=== PATIENT | female | born 1990 | race Caucasian/White ===

== ENCOUNTER 2017-03-21 08:48 | Emergency (ER) | payer SELFPAY ==
[2017-03-21] MEDS ORDERED: Ibuprofen 800 MG Tab PO ONE (08:55)
--- NOTE | 2017-03-21 08:55 | EDM.PDOC ---
ED HPI GENERAL MEDICAL PROBLEM - General Chief Complaint: Neck Problem Stated Complaint: AMBULANCE Time Seen by Provider: 03/21/17 08:51 Source of Information: Reports: Patient History Limitations: Reports: No Limitations - History of Present Illness INITIAL COMMENTS - FREE TEXT/NARRATIVE: History of present illness: []Patient awoke with severe left-sided neck spasm. Patient states she's had this before but never this bad. Earlier she had pain radiating down her left arm with numbness but that has since resolved. Patient has not taken any meds since this occurred she came in by ambulance. Review of systems: As per history of present illness and below otherwise all systems reviewed and negative. Past medical history: As per history of present illness and as reviewed below otherwise noncontributory. Surgical history: As per history of present illness and as reviewed below otherwise noncontributory. Social history: No reported history of drug or alcohol abuse. Family history: As per history of present illness and as reviewed below otherwise noncontributory. Physical exam: General: Well developed, well nourished in NAD HEENT: Atraumatic, normocephalic, pupils reactive, negative for conjunctival pallor or scleral icterus, mucous membranes moist, throat clear, neck supple, tender over the left posterior neck with palpable muscle spasm, trachea midline. Lungs: Clear to auscultation, breath sounds equal bilaterally, chest nontender. Heart: S1S2, regular, negative for clicks, rubs, or JVD. Abdomen: Soft, nondistended, nontender. Negative for masses or hepatosplenomegaly. Negative for costovertebral tenderness. Pelvis: Stable nontender. Genitourinary: Deferred. Rectal: Deferred. Extremities: Atraumatic, negative for cords or calf pain. Neurovascular unremarkable. Neuro: Awake, alert, oriented. Cranial nerves II through XII unremarkable. Cerebellum unremarkable. Motor and sensory unremarkable throughout with equal aerospace engineer officer armament. Exam nonfocal. Diagnostics: [] Therapeutics: []Ibuprofen Impression: []Cervical sprain Plan: []Ibuprofen, Flexeril, ice and heat Definitive disposition and diagnosis as appropriate pending reevaluation and review of above. - Related Data Allergies Allergy/AdvReac Type Severity Reaction Status Date / Time codeine Allergy Hives Verified 03/21/17 08:49 Home Meds: Home Meds Cyclobenzaprine [Flexeril] 10 mg PO BID PRN #6 tablet 03/21/17 [Rx] ED ROS GENERAL - Review of Systems Review Of Systems: See Below (See history of present illness) ED EXAM, UPPER BACK/NECK PAIN - Physical Exam Exam: See Below (See history of present illness) Course - Vital Signs Last Recorded V/S: Last Vital Signs Temp 98.7 F 03/21/17 08:49 Pulse 81 03/21/17 08:49 Resp 16 03/21/17 08:49 BP 136/63 03/21/17 08:49 Pulse Ox 93 L 03/21/17 08:49 - Orders/Labs/Meds Meds: Medications Discontinued Medications Generic Name Dose Route Start Last Admin Trade Name Freq PRN Reason Stop Dose Admin Ibuprofen 800 mg 03/21/17 08:55 Motrin PO 03/21/17 08:56 ONETIME ONE Departure - Departure Time of Disposition: 09:04 Disposition: Home, Self-Care 01 Condition: Good Clinical Impression: Cervical paraspinal muscle spasm - Discharge Information Prescriptions: Cyclobenzaprine [Flexeril] 10 mg PO BID PRN #6 tablet PRN Reason: Spasms Forms: ED Department Discharge Additional Instructions: The following information is given to patients seen in the emergency department who are being discharged to home. This information is to outline your options for follow-up care. We provide all patients seen in our emergency department with a follow-up referral. The need for follow-up, as well as the timing and circumstances, are variable depending upon the specifics of your emergency department visit. If you don't have a primary care physician on staff, we will provide you with a referral. We always advise you to contact your personal physician following an emergency department visit to inform them of the circumstance of the visit and for follow-up with them and/or the need for any referrals to a consulting specialist. The emergency department will also refer you to a specialist when appropriate. This referral assures that you have the opportunity for follow-up care with a specialist. All of these measure are taken in an effort to provide you with optimal care, which includes your follow-up. Under all circumstances we always encourage you to contact your private physician who remains a resource for coordinating your care. When calling for follow-up care, please make the office aware that this follow-up is from your recent emergency room visit. If for any reason you are refused follow-up, please contact the [facility] at and asked to speak to the emergency department charge nurse. Take ibuprofen for pain, use Flexeril at night to relieve spasm use ice and/or heat for comfort follow-up with the primary care as needed [facility] [address] [place] [id number]
== END 2017-03-21 09:30 | disposition home or self-care (01) ==
LOC: MW.ED 08:48
DX: S13.4XXA Sprain of ligaments of cervical spine, initial encounter (principal); Z88.5 Allergy status to narcotic agent; X58.XXXA Exposure to other specified factors, initial encounter
CPT/HCPCS: 99283; A9270

== ENCOUNTER 2017-07-26 05:18 | Emergency (ER) | payer BC ==
[2017-07-26 06:59] LABS: CHLORIDE,CL 104 mmol/L (98-107); SODIUM,NA 140 mmol/L (136-145)
--- NOTE | 2017-07-26 07:07 | EDM.PDOC ---
ED HPI GENERAL MEDICAL PROBLEM - General Chief Complaint: Behavioral/Psych Stated Complaint: TOOK TO MANY PILLS Time Seen by Provider: 07/26/17 06:57 - History of Present Illness INITIAL COMMENTS - FREE TEXT/NARRATIVE: HISTORY AND PHYSICAL: History of present illness: Patient is a 26-year-old white female presents with a concern of depressive episode and polysubstance abuse patient states she took a unknown number of Adderall states she also used mushrooms and marijuana. She has had prior episodes of self mutilating behavior and psychiatric involvement she initially denied prior psychiatric admission upon discussion with her she states she has been admitted in the past. Review of systems: As per history of present illness and below otherwise all systems reviewed and negative. Past medical history: As per history of present illness and as reviewed below otherwise noncontributory. Surgical history: As per history of present illness and as reviewed below otherwise noncontributory. Social history: No reported history of drug or alcohol abuse. Family history: As per history of present illness and as reviewed below otherwise noncontributory. Physical exam: HEENT: Atraumatic, normocephalic, pupils reactive, negative for conjunctival pallor or scleral icterus, mucous membranes moist, throat clear, neck supple, nontender, trachea midline. Lungs: Clear to auscultation, breath sounds equal bilaterally, chest nontender. Heart: S1S2, regular, negative for clicks, rubs, or JVD. Abdomen: Soft, nondistended, nontender. Negative for masses or hepatosplenomegaly. Negative for costovertebral tenderness. Pelvis: Stable nontender. Genitourinary: Deferred. Rectal: Deferred. Extremities: Atraumatic, negative for cords or calf pain. Neurovascular unremarkable. Neuro: Awake, alert, oriented. Cranial nerves II through XII unremarkable. Cerebellum unremarkable. Motor and sensory unremarkable throughout. Exam nonfocal. Diagnostics: Psychiatric panel Therapeutics: IV O2 monitor Impression: #1 depressive episode with nonlethal overdose #2 polysubstance abuse Definitive disposition and diagnosis as appropriate pending reevaluation and review of above. 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: Reports: None Musculoskeletal History: Reports: None Neurological History: Reports: None Psychiatric History: Reports: Anxiety, Depression, Psych Hospitalization(s) Endocrine/Metabolic History: Reports: None Hematologic History: Reports: None Oncologic (Cancer) History: Reports: None Dermatologic History: Reports: None - Infectious Disease History Infectious Disease History: Reports: None - Past Surgical History Female Surgical History: Reports: None Social & Family History - Family History Family Medical History: Noncontributory - Tobacco Use Smoking Status *Q: Current Every Day Smoker Years of Tobacco use: 11 Packs/Tins Daily: 1 - Recreational Drug Use Recreational Drug Use: Yes Drug Use in Last 12 Months: Yes Recreational Drug Type: Reports: Marijuana/Hashish, Psilocybin (Mushrooms) ED ROS GENERAL - Review of Systems Review Of Systems: ROS reveals no pertinent complaints other than HPI. ED EXAM, GENERAL - Physical Exam Exam: See Below (dictation) Course - Vital Signs Text/Narrative:: Patient has had an unremarkable emergency department course poison control was consult patient remains hemodynamically stable I discussed case with psychiatry at [facility] graciously accepted the patient to retransferred to the emergency department for psychiatric admission by ground patient remains cooperative and agreeable to psychiatric admission Last Recorded V/S: Last Vital Signs Temp 37.1 C 07/26/17 05:24 Pulse 78 07/26/17 06:29 Resp 19 07/26/17 06:29 BP 118/73 07/26/17 06:29 Pulse Ox 99 07/26/17 06:29 - Orders/Labs/Meds Orders: Active Orders 24 hr Category Date Time Status EKG Documentation Completion [RC] STAT Care 07/26/17 05:33 Active Labs: Laboratory Tests 07/26/17 07/26/17 07/26/17 Range/Units 05:40 05:40 05:42 WBC 16.27 H (4.0-11.0) K/uL RBC 5.08 (4.30-5.90) M/uL Hgb 15.6 (12.0-16.0) g/dL Hct 44.1 (36.0-46.0) % MCV 86.8 (80.0-98.0) fL MCH 30.7 (27.0-32.0) pg MCHC 35.4 (31.0-37.0) g/dL RDW Std Deviation 40.9 (28.0-62.0) fl RDW Coeff of Nancy 13 (11.0-15.0) % Plt Count 370 (150-400) K/uL MPV 10.80 (7.40-12.00) fL Neut % (Auto) 72.8 (48.0-80.0) % Lymph % (Auto) 19.7 (16.0-40.0) % Iron % (Auto) 6.1 (0.0-15.0) % Eos % (Auto) 1.0 (0.0-7.0) % Baso % (Auto) 0.4 (0.0-1.5) % Neut # (Auto) 11.8 H (1.4-5.7) K/uL Lymph # (Auto) 3.2 H (0.6-2.4) K/uL Iron # (Auto) 1.0 H (0.0-0.8) K/uL Eos # (Auto) 0.2 (0.0-0.7) K/uL Baso # (Auto) 0.1 (0.0-0.1) K/uL Nucleated RBC % 0.0 /100WBC Nucleated RBCs # 0 K/uL Sodium 140 (136-145) mmol/L Potassium 3.8 (3.5-5.1) mmol/L Chloride 104 (98-107) mmol/L Carbon Dioxide 22.7 (21.0-32.0) mmol/L BUN 6 L (7.0-18.0) mg/dL Creatinine 0.7 (0.6-1.0) mg/dL Est Cr Clr Drug Dosing 95.48 mL/min Estimated GFR (MDRD) > 60.0 ml/min Glucose 98 (74-106) mg/dL Calcium 9.5 (8.5-10.1) mg/dL Magnesium 1.6 (1.5-2.0) mg/dL Total Bilirubin 0.3 (0.2-1.0) mg/dL AST 19 (15-37) IU/L ALT 24 (14-63) IU/L Alkaline Phosphatase 96 (46-116) U/L Total Protein 7.9 (6.4-8.2) g/dL Albumin 4.2 (3.4-5.0) g/dL Globulin 3.7 H (2.0-3.5) g/dL Albumin/Globulin Ratio 1.1 L (1.3-2.8) TSH 3rd Generation 2.45 (0.36-3.74) uIU/mL Urine Color YELLOW Urine Appearance CLEAR Urine pH 6.0 (5.0-8.0) Ur Specific [place] 1.025 (1.001-1.035) Urine Protein NEGATIVE (NEGATIVE) mg/dL Urine Glucose (UA) NEGATIVE (NEGATIVE) mg/dL Urine Ketones 40 H (NEGATIVE) mg/dL Urine Occult Blood TRACE-LYSED (NEGATIVE) Urine Nitrite NEGATIVE (NEGATIVE) Urine Bilirubin SMALL H (NEGATIVE) Urine Ictotest NEGATIVE Urine Urobilinogen 0.2 (<2.0) EU/dL Ur Leukocyte Esterase NEGATIVE (NEGATIVE) Urine RBC 0-2 (0-2/HPF) Urine WBC 2-4 (0-5/HPF) Ur Epithelial Cells MODERATE (NONE-FEW) Urine Bacteria FEW (NEGATIVE) Urine Mucus LIGHT (NONE-MOD) Salicylates 5.6 (0-20) mg/dL Urine Opiates Screen (NEGATIVE) Ur Oxycodone Screen (NEGATIVE) Urine Methadone Screen (NEGATIVE) Acetaminophen 0.0 ug/mL Ur Barbiturates Screen (NEGATIVE) Ur Phencyclidine Scrn (NEGATIVE) Ur Amphetamine Screen (NEGATIVE) U Methamphetamines Scrn (NEGATIVE) U Benzodiazepines Scrn (NEGATIVE) U Cocaine Metab Screen (NEGATIVE) U Marijuana (THC) Screen (NEGATIVE) Ethyl Alcohol 47 mg/dL 07/26/17 Range/Units 05:42 WBC (4.0-11.0) K/uL RBC (4.30-5.90) M/uL Hgb (12.0-16.0) g/dL Hct (36.0-46.0) % MCV (80.0-98.0) fL MCH (27.0-32.0) pg MCHC (31.0-37.0) g/dL RDW Std Deviation (28.0-62.0) fl RDW Coeff of Nancy (11.0-15.0) % Plt Count (150-400) K/uL MPV (7.40-12.00) fL Neut % (Auto) (48.0-80.0) % Lymph % (Auto) (16.0-40.0) % Iron % (Auto) (0.0-15.0) % Eos % (Auto) (0.0-7.0) % Baso % (Auto) (0.0-1.5) % Neut # (Auto) (1.4-5.7) K/uL Lymph # (Auto) (0.6-2.4) K/uL Iron # (Auto) (0.0-0.8) K/uL Eos # (Auto) (0.0-0.7) K/uL Baso # (Auto) (0.0-0.1) K/uL Nucleated RBC % /100WBC Nucleated RBCs # K/uL Sodium (136-145) mmol/L Potassium (3.5-5.1) mmol/L Chloride (98-107) mmol/L Carbon Dioxide (21.0-32.0) mmol/L BUN (7.0-18.0) mg/dL Creatinine (0.6-1.0) mg/dL Est Cr Clr Drug Dosing mL/min Estimated GFR (MDRD) ml/min Glucose (74-106) mg/dL Calcium (8.5-10.1) mg/dL Magnesium (1.5-2.0) mg/dL Total Bilirubin (0.2-1.0) mg/dL AST (15-37) IU/L ALT (14-63) IU/L Alkaline Phosphatase (46-116) U/L Total Protein (6.4-8.2) g/dL Albumin (3.4-5.0) g/dL Globulin (2.0-3.5) g/dL Albumin/Globulin Ratio (1.3-2.8) TSH 3rd Generation (0.36-3.74) uIU/mL Urine Color Urine Appearance Urine pH (5.0-8.0) Ur Specific [place] (1.001-1.035) Urine Protein (NEGATIVE) mg/dL Urine Glucose (UA) (NEGATIVE) mg/dL Urine Ketones (NEGATIVE) mg/dL Urine Occult Blood (NEGATIVE) Urine Nitrite (NEGATIVE) Urine Bilirubin (NEGATIVE) Urine Ictotest Urine Urobilinogen (<2.0) EU/dL Ur Leukocyte Esterase (NEGATIVE) Urine RBC (0-2/HPF) Urine WBC (0-5/HPF) Ur Epithelial Cells (NONE-FEW) Urine Bacteria (NEGATIVE) Urine Mucus (NONE-MOD) Salicylates (0-20) mg/dL Urine Opiates Screen NEGATIVE (NEGATIVE) Ur Oxycodone Screen NEGATIVE (NEGATIVE) Urine Methadone Screen NEGATIVE (NEGATIVE) Acetaminophen ug/mL Ur Barbiturates Screen NEGATIVE (NEGATIVE) Ur Phencyclidine Scrn NEGATIVE (NEGATIVE) Ur Amphetamine Screen POSITIVE (NEGATIVE) U Methamphetamines Scrn NEGATIVE (NEGATIVE) U Benzodiazepines Scrn NEGATIVE (NEGATIVE) U Cocaine Metab Screen POSITIVE (NEGATIVE) U Marijuana (THC) Screen POSITIVE (NEGATIVE) Ethyl Alcohol mg/dL Departure - Departure Time of Disposition: 07:06 Disposition: DC/Tfer to Psych Hosp/Unit 65 Condition: Good Clinical Impression: Depressive disorder, Polysubstance abuse - Discharge Information - My Orders Last 24 Hours: My Active Orders 07/26/17 05:33 EKG Documentation Completion [RC] STAT - Assessment/Plan Last 24 Hours: My Active Orders 07/26/17 05:33 EKG Documentation Completion [RC] STAT
== END 2017-07-26 08:11 ==
LOC: MW.ED 05:18
DX: T43.621A Poisoning by amphetamines, accidental (unintentional), initial encounter (principal); F32.9 Major depressive disorder, single episode, unspecified; F19.10 Other psychoactive substance abuse, uncomplicated; F17.210 Nicotine dependence, cigarettes, uncomplicated; Z88.5 Allergy status to narcotic agent; Z79.899 Other long term (current) drug therapy
CPT/HCPCS: 36415; 80053; 80305; 81001; 83735; 84443; 85025; 93005; 99285; G0480; 99284

== ENCOUNTER 2018-05-13 01:32 | Emergency (ER) | payer SELFPAY ==
--- NOTE | 2018-05-13 01:52 | EDM.PDOC ---
ED HPI GENERAL MEDICAL PROBLEM - General Chief Complaint: General Stated Complaint: MEDICAL CLEARANCE Time Seen by Provider: 05/13/18 01:50 - History of Present Illness INITIAL COMMENTS - FREE TEXT/NARRATIVE: HISTORY AND PHYSICAL: History of present illness: Patient's 27-year-old white female presents in custody of law enforcement for medical clearance she has no complaints Review of systems: As per history of present illness and below otherwise all systems reviewed and negative. Past medical history: As per history of present illness and as reviewed below otherwise noncontributory. Surgical history: As per history of present illness and as reviewed below otherwise noncontributory. Social history: No reported history of drug or alcohol abuse. Family history: As per history of present illness and as reviewed below otherwise noncontributory. Physical exam: HEENT: Atraumatic, normocephalic, pupils reactive, negative for conjunctival pallor or scleral icterus, mucous membranes moist, throat clear, neck supple, nontender, trachea midline. Lungs: Clear to auscultation, breath sounds equal bilaterally, chest nontender. Heart: S1S2, regular, negative for clicks, rubs, or JVD. Abdomen: Soft, nondistended, nontender. Negative for masses or hepatosplenomegaly. Negative for costovertebral tenderness. Pelvis: Stable nontender. Genitourinary: Deferred. Rectal: Deferred. Extremities: Atraumatic, negative for cords or calf pain. Neurovascular unremarkable. Neuro: Awake, alert, oriented. Cranial nerves II through XII unremarkable. Cerebellum unremarkable. Motor and sensory unremarkable throughout. Exam nonfocal. Diagnostics: None Therapeutics: None Impression: #1 medical clearance for incarceration Definitive disposition and diagnosis as appropriate pending reevaluation and review of above. 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 Musculoskeletal History: Reports: None Neurological History: Reports: None Psychiatric History: Reports: Anxiety, Depression, Psych Hospitalization(s) Endocrine/Metabolic History: Reports: None Hematologic History: Reports: None Immunologic History: Reports: None Oncologic (Cancer) History: Reports: None Dermatologic History: Reports: None - Infectious Disease History Infectious Disease History: Reports: None - Past Surgical History Head Surgeries/Procedures: Reports: None Female Surgical History: Reports: None Social & Family History - Family History Family Medical History: Noncontributory - Tobacco Use Smoking Status *Q: Current Every Day Smoker Years of Tobacco use: 10 Packs/Tins Daily: 2 - Caffeine Use Caffeine Use: Reports: Soda - Recreational Drug Use Recreational Drug Use: No ED ROS GENERAL - Review of Systems Review Of Systems: ROS reveals no pertinent complaints other than HPI. ED EXAM, GENERAL - Physical Exam Exam: See Below (See dictation) Course - Vital Signs Last Recorded V/S: Last Vital Signs Temp 36.4 C 05/13/18 01:35 Pulse 126 H 05/13/18 01:35 Resp 16 05/13/18 01:35 BP 129/75 05/13/18 01:35 Pulse Ox 97 05/13/18 01:35 - Orders/Labs/Meds Orders: Active Orders 24 hr Category Date Time Status Blood Glucose Check, Bedside [RC] ONETIME Care 05/13/18 01:44 Active Labs: Laboratory Tests 05/13/18 Range/Units 01:43 POC Glucose 96 (60-110) mg/dL Departure - Departure Time of Disposition: 01:51 Disposition: Home, Self-Care 01 Condition: Good Clinical Impression: Medical clearance for incarceration - Discharge Information Referrals: PCP,None [Primary Care Provider] - Additional Instructions: The following information is given to patients seen in the emergency department who are being discharged to home. This information is to outline your options for follow-up care. We provide all patients seen in our emergency department with a follow-up referral. The need for follow-up, as well as the timing and circumstances, are variable depending upon the specifics of your emergency department visit. If you don't have a primary care physician on staff, we will provide you with a referral. We always advise you to contact your personal physician following an emergency department visit to inform them of the circumstance of the visit and for follow-up with them and/or the need for any referrals to a consulting specialist. The emergency department will also refer you to a specialist when appropriate. This referral assures that you have the opportunity for followup care with a specialist. All of these measure are taken in an effort to provide you with optimal care, which includes your followup. Under all circumstances we always encourage you to contact your private physician who remains a resource for coordinating your care. When calling for followup care, please make the office aware that this follow-up is from your recent emergency room visit. If for any reason you are refused follow-up, please contact the [facility] emergency department at and asked to speak to the emergency department charge nurse. Follow-up primary medical doctor as needed as discussed return as needed as discussed - My Orders Last 24 Hours: My Active Orders 05/13/18 01:44 Blood Glucose Check, Bedside [RC] ONETIME - Assessment/Plan Last 24 Hours: My Active Orders 05/13/18 01:44 Blood Glucose Check, Bedside [RC] ONETIME
== END 2018-05-13 02:00 | disposition home or self-care (01) ==
LOC: MW.ED 01:32
DX: Z02.89 Encounter for other administrative examinations (principal); F41.9 Anxiety disorder, unspecified; F32.9 Major depressive disorder, single episode, unspecified; F17.210 Nicotine dependence, cigarettes, uncomplicated; Z79.899 Other long term (current) drug therapy
CPT/HCPCS: 82962; 99282; 99283

== ENCOUNTER 2018-06-18 15:59 | Emergency (ER) | payer SELFPAY ==
[2018-06-18] MEDS ORDERED: Diphtheria,Pertussis(Acell),Tetanus Vaccine 0.5 ML Syringe IM ONE (16:15)
--- NOTE | 2018-06-18 16:20 | EDM.PDOC ---
ED HPI GENERAL MEDICAL PROBLEM - General Chief Complaint: General Stated Complaint: MEDICAL CLEARANCE Time Seen by Provider: 06/18/18 16:03 Source of Information: Reports: Patient History Limitations: Reports: No Limitations - History of Present Illness INITIAL COMMENTS - FREE TEXT/NARRATIVE: HISTORY AND PHYSICAL: History of present illness: Patient is a 27-year-old female who is brought to the emergency room via enforcement for medical screening. Patient reportedly is brought here for removal of marijuana from the vaginal vault. Patient states that she is agreeable to removal of the marijuana from her vagina. Patient denies any other health concerns or issues to address today. Patient does have a history of anxiety, depression, and borderline personality disorder. Patient denies any other health issues or concerns. Review of systems: As per history of present illness and below otherwise all systems reviewed and negative. Past medical history: As per history of present illness and as reviewed below otherwise noncontributory. Surgical history: As per history of present illness and as reviewed below otherwise noncontributory. Social history: See social history for further information Family history: As per history of present illness and as reviewed below otherwise noncontributory. Physical exam: General: Patient is alert, oriented, and in no acute distress. She is sitting comfortably on exam table. HEENT: Atraumatic, normocephalic, pupils equal and reactive bilaterally, negative for conjunctival pallor or scleral icterus, mucous membranes moist, TMs normal bilaterally, throat clear, neck supple, nontender, trachea midline. No drooling or trismus noted. No meningeal signs. No hot potato voice noted. Lungs: Clear to auscultation, breath sounds equal bilaterally, chest nontender. Heart: S1S2, regular rate and rhythm without overt murmur Abdomen: Soft, nondistended, nontender. Negative for masses or hepatosplenomegaly. Negative for costovertebral tenderness. Pelvis: Stable nontender. Genitourinary: This was done with consent and a sanitation director at the bedside. Law enforcement is also at the bedside to take custody of the drug paraphernalia. Patient did self extract the marijuana from her vagina by herself, was contained in a plastic bag. Speculum exam was performed post extraction. There were no remaining contents in the vaginal vault. Negative for lesions, lacerations. Rectal: Deferred. Skin: Intact, warm, dry. No lesions or rashes noted. Extremities: Atraumatic, moves all perself, negative for cords or calf pain. Neurovascular unremarkable. Neuro: Awake, alert, oriented. Cranial nerves II through XII unremarkable. Cerebellum unremarkable. Motor and sensory unremarkable throughout. Exam nonfocal. Notes: Supportive care measures were reviewed and discussed. Voices understanding and is agreeable to plan of care. Denies any further questions or concerns at this time. Patient was discharged to custody of law enforcement. Diagnostics: None Therapeutics: None Prescription: None Impression: Encounter for medical screening for incarceration Plan: 1. Please stop drug use. Continue to take your home medications as prescribed. 2. Follow-up with your primary medical provider as we discussed. 3. Return to the ED as needed and as discussed. Definitive disposition and diagnosis as appropriate pending reevaluation and review of above. - Related Data Allergies Allergy/AdvReac Type Severity Reaction Status Date / Time codeine Allergy Hives Verified 06/18/18 16:09 Home Meds: Home Meds lamoTRIgine [Lamotrigine] 200 mg PO DAILY 11/21/17 [History] Dextroamphetamine/Amphetamine [Adderall] 20 mg PO BID 05/13/18 [History] Sertraline [Zoloft] 50 mg PO DAILY 05/13/18 [History] Past Medical History HEENT History: Reports: None Cardiovascular History: Reports: None Respiratory History: Reports: None Gastrointestinal History: Reports: None Genitourinary History: Reports: None MACHINE TENDER History: Reports: None Musculoskeletal History: Reports: None Neurological History: Reports: None Psychiatric History: Reports: Anxiety, Depression, Psych Hospitalization(s) Endocrine/Metabolic History: Reports: None Hematologic History: Reports: None Immunologic History: Reports: None Oncologic (Cancer) History: Reports: None Dermatologic History: Reports: None - Infectious Disease History Infectious Disease History: Reports: None - Past Surgical History Head Surgeries/Procedures: Reports: None Female Surgical History: Reports: None Social & Family History - Family History Family Medical History: Noncontributory - Caffeine Use Caffeine Use: Reports: Soda ED ROS GENERAL - Review of Systems Review Of Systems: ROS reveals no pertinent complaints other than HPI. ED EXAM, GENERAL - Physical Exam Exam: See Below (See dictation) Course - Vital Signs Last Recorded V/S: Last Vital Signs Temp 97.6 F 06/18/18 16:10 Pulse 112 H 03/05/19 16:10 Resp 18 06/18/18 16:10 BP 134/87 06/18/18 16:10 Pulse Ox 98 06/18/18 16:10 - Orders/Labs/Meds Orders: Active Orders 24 hr Category Date Time Status Vaccines to be Administered [RC] PER UNIT ROUTINE Care 06/18/18 16:15 Active Meds: Medications Discontinued Medications Generic Name Dose Route Start Last Admin Trade Name Frefaby PRN Reason Stop Dose Admin Diphtheria/Tetanus/Acell Pertussis 0.5 ml 06/18/18 16:15 06/18/18 16:21 Adacel IM 06/18/18 16:16 0.5 ml .ONCE ONE Administration Departure - Departure Time of Disposition: 16:34 Disposition: Home, Self-Care 01 Clinical Impression: Encounter for medical screening examination - Discharge Information Instructions: Medical Screening Exam Referrals: PCP,Unknown [Primary Care Provider] - Forms: ED Department Discharge Additional Instructions: The following information is given to patients seen in the emergency department who are being discharged to home. This information is to outline your options for follow-up care. We provide all patients seen in our emergency department with a follow-up referral. The need for follow-up, as well as the timing and circumstances, are variable depending upon the specifics of your emergency department visit. If you don't have a primary care physician on staff, we will provide you with a referral. We always advise you to contact your personal physician following an emergency department visit to inform them of the circumstance of the visit and for follow-up with them and/or the need for any referrals to a consulting specialist. The emergency department will also refer you to a specialist when appropriate. This referral assures that you have the opportunity for follow-up care with a specialist. All of these measure are taken in an effort to provide you with optimal care, which includes your follow-up. Under all circumstances we always encourage you to contact your private physician who remains a resource for coordinating your care. When calling for follow-up care, please make the office aware that this follow-up is from your recent emergency room visit. If for any reason you are refused follow-up, please contact the [facility] Emergency Department at and asked to speak to the emergency department charge nurse. [facility] [address] [place] [address] [facility] [address] [place] [phone] 1. Please stop drug use. Continue to take your home medications as prescribed. 2. Follow-up with your primary medical provider as we discussed. 3. Return to the ED as needed and as discussed. - My Orders Last 24 Hours: My Active Orders 06/18/18 16:15 Vaccines to be Administered [RC] PER UNIT ROUTINE - Assessment/Plan Last 24 Hours: My Active Orders 06/18/18 16:15 Vaccines to be Administered [RC] PER UNIT ROUTINE
== END 2018-06-18 16:59 ==
LOC: MW.ED 15:59
DX: Z02.89 Encounter for other administrative examinations (principal); F41.9 Anxiety disorder, unspecified; F32.9 Major depressive disorder, single episode, unspecified; Z23 Encounter for immunization; Z88.5 Allergy status to narcotic agent; Z79.899 Other long term (current) drug therapy
CPT/HCPCS: 90471; 90715; 99283

== ENCOUNTER 2021-11-03 11:14 | Emergency (ER) | payer MEDICAID ==
[2021-11-03] MEDS ORDERED: Sodium Chloride 0.9% 1,000 ML IV ONE (11:19)
[2021-11-03 12:49] LABS: POTASSIUM,K 3.8 mmol/L (3.5-5.1)
== END 2021-11-03 13:11 | disposition home or self-care (01) ==
LOC: MW.ED 11:14
DX: O99.342 Other mental disorders complicating pregnancy, second trimester (principal); F41.9 Anxiety disorder, unspecified; Z88.5 Allergy status to narcotic agent; Z3A.14 14 weeks gestation of pregnancy
CPT/HCPCS: 36415; 80053; 81003; 84443; 84484; 84702; 85025; 93005; 96360; 99285; J7030; 99283

== ENCOUNTER 2021-11-24 00:58 | Emergency (ER) | payer MEDICAID ==
[2021-11-24] MEDS ORDERED: Alum Hydro/Mag Hydro/Simeth XS 15 ML, Lidocaine 2% 5 ML PO ONE ×2 (01:18)
[2021-11-24] MEDS ORDERED: Famotidine 20 MG/2 ML SDV IVPUSH ONE (01:18)
[2021-11-24] MEDS ORDERED: Acetaminophen 500 MG Tab PO ONE (01:19)
[2021-11-24 02:59] LABS: CARBON DIOXIDE,CO2 26.7 mmol/L (21.0-32.0); POTASSIUM,K 3.5 mmol/L (3.5-5.1)
== END 2021-11-24 03:40 | disposition left against medical advice (07) ==
LOC: MW.ED 00:58
DX: O99.892 Other specified diseases and conditions complicating childbirth (principal); R10.84 Generalized abdominal pain; Z3A.17 17 weeks gestation of pregnancy; Z79.899 Other long term (current) drug therapy; Z88.5 Allergy status to narcotic agent
CPT/HCPCS: 36415; 76805; 80053; 81001; 83690; 84702; 85025; 96374; 99284; A9270; J3490

== ENCOUNTER 2022-05-10 09:24 | Inpatient (IN) | payer MEDICAID ==
[2022-05-10] MEDS ORDERED: Water For Irrigation,Sterile 1,000 ML Container IRR PRN (09:41)
[2022-05-10] MEDS ORDERED: Terbutaline 1 MG/ML SDV SUBCUT PRN (09:41)
[2022-05-10] MEDS ORDERED: Sodium Chloride 0.9% 2.5 ML Syringe FLUSH PRN (09:41)
[2022-05-10] MEDS ORDERED: Misoprostol 200 MCG Tab PO PRN (09:41)
[2022-05-10] MEDS ORDERED: Lidocaine 1% 50 ML MDV INJECT PRN (09:41)
[2022-05-10] MEDS ORDERED: Sodium Chloride 0.9% 10 ML Syringe FLUSH PRN (09:41)
[2022-05-10] MEDS ORDERED: Carboprost Tromethamine 250 MCG/1 ML Amp IM PRN (09:41)
[2022-05-10] MEDS ORDERED: Tranexamic Acid 1,000 MG in Sodium Chloride 0.9% 100 ML IV PRN (09:41)
[2022-05-10] MEDS ORDERED: Sodium Chloride 0.9% 20 ML SDV IV PRN (09:41)
[2022-05-10] MEDS ORDERED: Methylergonovine 0.2 MG/1 ML Amp IM PRN (09:41)
[2022-05-10] MEDS ORDERED: Oxytocin/0.9 % Sodium Chloride 30 UNIT/500 ML BAG IV SCH ×2 (09:45)
[2022-05-10] MEDS ORDERED: Misoprostol 25 MCG (1/4 of 100 MCG) Tab PO PRN ×2 (10:15→14:15)
[2022-05-10] MEDS ORDERED: Misoprostol 25 MCG (1/4 of 100 MCG) Tab VAG PRN ×2 (10:15→14:15)
[2022-05-10] MEDS: Butorphanol 1 MG/ML SDV IVPUSH PRN ×2 (14:39→15:50)
[2022-05-10] MEDS: Nicotine 21 MG/24 Hr Patch TRDERM SCH (15:33)
[2022-05-10] MEDS: Lactated Ringers 1,000 ML IV SCH ×3 (17:15→21:42)
[2022-05-10] MEDS ORDERED: Ropivacaine/PF 400 MG/200 ML PCA ONE (17:59)
[2022-05-10] MEDS: Ondansetron 4 MG/2 ML SDV IVPUSH PRN (18:51)
[2022-05-11] MEDS ORDERED: Acetaminophen 325 MG Tab PO ONE (00:59)
[2022-05-11] MEDS ORDERED: Labetalol 100 MG Tab PO ONE ×2 (01:16→08:44)
[2022-05-11] MEDS: Lactated Ringers 1,000 ML IV SCH (04:15)
[2022-05-11] MEDS ORDERED: Ropivacaine/PF 400 MG/200 ML PCA ONE (07:09)
[2022-05-11] MEDS ORDERED: Labetalol 100 MG Tab ONE (08:40)
[2022-05-11] MEDS: Nicotine 21 MG/24 Hr Patch TRDERM SCH (08:46)
[2022-05-11] MEDS: Ondansetron 4 MG/2 ML SDV IVPUSH PRN (08:51)
[2022-05-11] MEDS ORDERED: fentaNYL 100 MCG/2 ML SDV ONE (10:28)
[2022-05-11] MEDS ORDERED: ePHEDrine 50 MG/ML SDV IVPUSH PRN (11:07)
[2022-05-11] MEDS ORDERED: Phenylephrine HCl In 0.9% NaCl 1 MG/10 ML Vial IVPUSH PRN (11:07)
[2022-05-11] MEDS ORDERED: Ropivacaine HCl/PF 400 MG in Premix Bag 1 BAG EPIDUR SCH (11:15)
[2022-05-11] MEDS ORDERED: Benzocaine/Menthol 20%-0.5% Spray 78 GM Cannister TOP PRN (15:32)
[2022-05-11] MEDS ORDERED: Ibuprofen 400 MG Tab PO PRN (15:32)
[2022-05-11] MEDS ORDERED: Witch Hazel Medicated Pads 40/Jar TOP PRN (15:32)
[2022-05-11] MEDS ORDERED: oxyCODONE 5 MG Tab PO PRN (15:32)
[2022-05-11] MEDS ORDERED: Docusate Sodium 100 MG Cap PO PRN (15:32)
[2022-05-11] MEDS ORDERED: Acetaminophen 500 MG Tab PO PRN (15:32)
[2022-05-11] MEDS ORDERED: Lanolin 100% Cream 7 GM Tube TOP PRN (15:32)
[2022-05-11] MEDS ORDERED: Bisacodyl 10 MG Supp RECTAL PRN (15:32)
[2022-05-11] MEDS: Labetalol 100 MG/20 ML MDV IVPUSH PRN ×4 (16:21→21:38)
[2022-05-11] MEDS: Acetaminophen 500 MG Tab PO PRN (16:25)
[2022-05-11] MEDS: Ibuprofen 800 MG Tab PO PRN (18:09)
[2022-05-12] MEDS: Ibuprofen 800 MG Tab PO PRN (03:47)
[2022-05-12] MEDS: Labetalol 100 MG/20 ML MDV IVPUSH PRN ×2 (05:49→07:57)
[2022-05-12] MEDS: Acetaminophen 500 MG Tab PO PRN (07:41)
[2022-05-12] MEDS: Nicotine 21 MG/24 Hr Patch TRDERM SCH ×2 (07:42→08:52)
[2022-05-12] MEDS ORDERED: NIFEdipine 30 MG Tab.ER PO SCH (09:00)
== END 2022-05-12 18:40 | disposition home or self-care (01) | DRG 807 ==
LOC: MW.OBCHECK 09:24 → MW.OB 11:14 → OBSVTOIN 15:17 → MW.OB 05-11 21:32
PROVIDERS: ADMIT Obstetrics & Gynecology; ATTEND Obstetrics & Gynecology
PROC: 10E0XZZ Delivery of Products of Conception, External Approach (ICD-10-PCS; principal; 2022-05-10)
PROC: 10907ZC Drainage of Amniotic Fluid, Therapeutic from Products of Conception, Via Natural or Artificial Opening (ICD-10-PCS; 2022-05-10)
PROC: 3E0R3BZ Introduction of Anesthetic Agent into Spinal Canal, Percutaneous Approach (ICD-10-PCS; 2022-05-10)
PROC: 00HU33Z Insertion of Infusion Device into Spinal Canal, Percutaneous Approach (ICD-10-PCS; 2022-05-10)
DX: O48.0 Post-term pregnancy (principal); Z37.0 Single live birth; Z3A.41 41 weeks gestation of pregnancy; O99.344 Other mental disorders complicating childbirth; O77.0 Labor and delivery complicated by meconium in amniotic fluid; F32.A Depression, unspecified; F41.9 Anxiety disorder, unspecified; F90.9 Attention-deficit hyperactivity disorder, unspecified type; F60.3 Borderline personality disorder; Z20.822 Contact with and (suspected) exposure to COVID-19
CPT/HCPCS: 36415; 51702; 59025; 59409; 80305-QW; 85014; 85018; 85027; 86592; 86850; 86900; 86901; A9270-GY; J0595; J2405; J2590; J2795; J3010; J3490; J7120; U0002

== ENCOUNTER 2022-06-19 17:31 | Emergency (ER) | payer MEDICAID | END 2022-06-19 19:06 | LOC: MW.ED 17:31 | DX: Z53.21 Procedure and treatment not carried out due to patient leaving prior to being seen by health care provider (principal) | CPT/HCPCS: 93005 ==

== ENCOUNTER 2022-06-20 01:26 | Emergency (ER) | payer MEDICAID ==
[2022-06-20] MEDS ORDERED: Sodium Chloride 0.9% 2.5 ML Syringe FLUSH PRN (01:31)
[2022-06-20] MEDS ORDERED: Sodium Chloride 0.9% 10 ML Syringe FLUSH PRN (01:31)
[2022-06-20] MEDS ORDERED: Nitroglycerin 0.4 MG Tab.SL SL PRN (01:31)
[2022-06-20] MEDS ORDERED: Aspirin 81 MG Tab.Chew PO ONE (01:31)
[2022-06-20] MEDS ORDERED: HYDROmorphone 1 MG/ML Syringe IVPUSH ONE (02:53)
[2022-06-20 02:58] LABS: CARBON DIOXIDE,CO2 30.1 mmol/L (21.0-32.0); POTASSIUM,K 4.1 mmol/L (3.5-5.1)
[2022-06-20] MEDS ORDERED: Ondansetron 4 MG/2 ML SDV ONE (03:12)
[2022-06-20] MEDS ORDERED: Ondansetron 4 MG/2 ML SDV IVPUSH ONE (03:13)
[2022-06-20] MEDS ORDERED: Iopamidol 755 MG/ML 500 ML Multipack Bottle IVPUSH STA (03:53)
[2022-06-20] MEDS ORDERED: Magnesium Oxide 400 MG Tab PO ONE (03:59)
== END 2022-06-20 05:54 | disposition home or self-care (01) ==
LOC: MW.ED 01:26
DX: O99.893 Other specified diseases and conditions complicating puerperium (principal); R07.2 Precordial pain; Z88.5 Allergy status to narcotic agent; Z86.16 Personal history of COVID-19
CPT/HCPCS: 36415; 71045; 71045-26; 71275; 71275-26; 80053; 83735; 84484; 85025; 85379; 85610; 93005; 93010; 96374; 96375; 99284; 99285-25; A9270-GY; J1170; J2405; J3490; Q9967

== ENCOUNTER 2022-08-04 14:11 | Emergency (ER) | payer MEDICAID ==
[2022-08-04 14:59] LABS: CARBON DIOXIDE,CO2 30.1 mmol/L (21.0-32.0)
== END 2022-08-04 16:47 | disposition home or self-care (01) ==
LOC: MW.ED 14:11
DX: O99.63 Diseases of the digestive system complicating the puerperium (principal); K80.70 Calculus of gallbladder and bile duct without cholecystitis without obstruction; Z88.5 Allergy status to narcotic agent; Z86.16 Personal history of COVID-19
CPT/HCPCS: 36415; 76705; 76705-26; 80053; 81001; 83690; 85025; 93005; 99285